=== PATIENT | male | born 2000 | race Caucasian/White ===

== ENCOUNTER 2022-12-24 11:47 | Outpatient (CLI) | payer OTHER | END 2022-12-24 11:49 | disposition home or self-care (01) | LOC: SONOGRAMA 11:47 | PROVIDERS: ATTEND Pathology Anatomic Pathology & Clinical Pathology | DX: D44.0 Neoplasm of uncertain behavior of thyroid gland (principal); E07.9 Disorder of thyroid, unspecified ==

== ENCOUNTER 2023-08-12 08:29 | Outpatient (CLI) | payer OTHER | END 2023-08-17 08:31 | disposition home or self-care (01) | LOC: SONOGRAMA 08:29 | PROVIDERS: ATTEND Pathology Anatomic Pathology & Clinical Pathology | DX: E03.8 Other specified hypothyroidism (principal); D44.0 Neoplasm of uncertain behavior of thyroid gland ==